=== PATIENT | male | born 1990 | race Two or more races ===

== ENCOUNTER 2017-01-13 14:08 | Emergency (ER) | payer OTHER ==
[~2017-01-13] VITALS: Ht 193 cm; Wt 74.8 kg
[2017-01-13 14:12] VITALS: BP 104/70
== END 2017-01-13 15:29 | disposition home or self-care (01) ==
LOC: ER 14:14
DX: R09.1 Pleurisy (principal); F17.200 Nicotine dependence, unspecified, uncomplicated
CPT/HCPCS: 71010; 93005; 99284; A4606; Z7610

== ENCOUNTER 2018-11-06 17:49 | Emergency (ER) | payer OTHER | END 2018-11-06 19:34 | disposition home or self-care (01) | DX: S62.605A Fracture of unspecified phalanx of left ring finger, initial encounter for closed fracture (principal); S60.142A Contusion of left ring finger with damage to nail, initial encounter; F17.200 Nicotine dependence, unspecified, uncomplicated; Z60.2 Problems related to living alone; W20.8XXA Other cause of strike by thrown, projected or falling object, initial encounter; Y93.89 Activity, other specified; Y92.89 Other specified places as the place of occurrence of the external cause; Y99.8 Other external cause status ==